=== PATIENT | male | born 1945 | race Caucasian/White ===

== ENCOUNTER → 2016-11-08 | Outpatient (CLI) | payer MEDICARE ==
[2016-11-08 15:58] LABS: Prostate Specific Antigen 9.45 ng/mL (0.00-4.00)
== END | disposition home or self-care (01) ==
LOC: LABWHC1 14:44
PROVIDERS: ATTEND Urology
DX: E29.1 Testicular hypofunction (principal)
CPT/HCPCS: 36415; 82040; 84153; 84270; 84403

== ENCOUNTER → 2016-12-13 | Outpatient (CLI) | payer MEDICARE ==
[2016-12-13 07:46] LABS: Basophils # (A) 0.1 k/uL (0-0.2); Basophils % (A) 1 %; CH 32.4; CHCM 33.4; Eosinophils # (A) 0.3 k/uL (0-0.7); Eosinophils % (A) 3 %; HDW 2.45; HGB 16.5 gm/dL (13.0-17.5); Luc # (Auto) 0.22; Luc % (Auto) 3; Lymphocytes # (A) 2.2 k/uL (1.0-4.8); Lymphocytes % (A) 27 %; MCH 32.2 pg (25.0-35.0); MCV 97.5 fL (80.0-100.0); Mean Platelet Volume 7.2; Monocytes # (A) 0.4 k/uL (0-1.0); Monocytes % (A) 5 %; Neutrophils # (A) 5.2 k/uL (1.3-7.7); Neutrophils % (A) 62 %; RBC 5.13 m/uL (4.30-5.90); RDW 13.5 % (11.5-15.5); WBC 8.4 k/uL (3.8-10.6)
[2016-12-13 11:43] LABS: ALT 34 U/L (21-72); AST 19 U/L (17-59); Alkaline Phosphatase 63 U/L (38-126); Anion Gap 10 mmol/L; Blood Urea Nitrogen 19 mg/dL (9-20); Calcium 9.7 mg/dL (8.4-10.2); Carbon Dioxide 27 mmol/L (22-30); Chloride 104 mmol/L (98-107); Cholesterol 155 mg/dL (<200); Glucose 164 mg/dL (74-99); HDL Cholesterol 24 mg/dL (40-60); Non-African American GFR(MDRD) >60 (>60 ml/min/1.73 sqM); Potassium 4.7 mmol/L (3.5-5.1); Sodium 141 mmol/L (137-145); Total Bilirubin 0.5 mg/dL (0.2-1.3); Total Protein 6.3 g/dL (6.3-8.2); Triglycerides 253 mg/dL (<150)
[2016-12-13 13:59] LABS: Hemoglobin A1C 6.4 % (4.2-6.1)
== END | disposition home or self-care (01) ==
LOC: LABWHC1 07:02
PROVIDERS: ATTEND Internal Medicine Critical Care Medicine
DX: E11.9 Type 2 diabetes mellitus without complications (principal); E29.1 Testicular hypofunction; Z79.899 Other long term (current) drug therapy; Z12.5 Encounter for screening for malignant neoplasm of prostate
CPT/HCPCS: 84439; 80061; 80053; 83036; 84443; 85025; 84403; 82306; 36415; G0103

== ENCOUNTER → 2017-02-04 | Outpatient (CLI) | payer MEDICARE ==
[2017-02-04 07:53] LABS: ALT 27 U/L (21-72); AST 15 U/L (17-59); Alkaline Phosphatase 56 U/L (38-126); Anion Gap 11 mmol/L; Blood Urea Nitrogen 20 mg/dL (9-20); Calcium 9.8 mg/dL (8.4-10.2); Carbon Dioxide 28 mmol/L (22-30); Chloride 103 mmol/L (98-107); Cholesterol 171 mg/dL (<200); Glucose 140 mg/dL (74-99); HDL Cholesterol 32 mg/dL (40-60); Non-African American GFR(MDRD) >60 (>60 ml/min/1.73 sqM); Potassium 4.3 mmol/L (3.5-5.1); Sodium 142 mmol/L (137-145); Total Bilirubin 0.7 mg/dL (0.2-1.3); Total Protein 6.6 g/dL (6.3-8.2); Triglycerides 181 mg/dL (<150)
[2017-02-04 12:21] LABS: Urine Creatinine 138.5 mg/dL
== END | disposition home or self-care (01) ==
LOC: LABWHC1 06:46
PROVIDERS: ATTEND Internal Medicine Endocrinology, Diabetes & Metabolism
DX: E11.65 Type 2 diabetes mellitus with hyperglycemia (principal)
CPT/HCPCS: 36415; 80053; 80061; 82043; 82570; 84443

== ENCOUNTER → 2017-03-14 | Outpatient (CLI) | payer MEDICARE ==
[2017-03-14 11:44] LABS: Sex Hormone Binding Globulin 26.5 nmol/L (11.0-57.0); Testosterone, Bioavailable 775.1 ng/dL (60.8-409.9); Testosterone, Free 33.1 ng/dL (3.70-23.28)
== END | disposition home or self-care (01) ==
LOC: LABWHC1 07:02
PROVIDERS: ATTEND Urology
DX: E29.1 Testicular hypofunction (principal)
CPT/HCPCS: 36415; 82040; 84153; 84270; 84403

== ENCOUNTER 2017-06-26 11:19 | Day surgery (SDC) | payer MEDICARE ==
--- NOTE | 2017-06-25 16:23 | HP ---
HISTORY AND PHYSICAL CHIEF COMPLAINT: Right hand pain and swelling. HISTORY OF PRESENT ILLNESS: The patient is a 71-year-old, right-hand dominant, retired male who presents with a 1- 1/2 weeks history of increasing pain in his right hand. He notes dorsal erythema and initial pimple on the index finger dorsum. This has subsequently started draining a purulent material. He denies fevers or chills. He was seen in an urgent care facility and was started on oral doxycycline. He notes worsening of symptoms over the past couple days. PAST MEDICAL HISTORY: Significant for type 2 diabetes and depression. PAST SURGICAL HISTORY: Significant for previous ankle surgery, cholecystectomy, tonsillectomy. CURRENT MEDICATIONS: Atorvastatin, clonazepam, fluoxetine, insulin, metformin, omeprazole, Requip, trazodone, and doxycycline. . ALLERGIES: To PENICILLIN and SULFA. FAMILY HISTORY: Significant for heart disease and diabetes. SOCIAL HISTORY: Significant for previous tobacco use; however, he quit in 1993. 16 REVIEW OF SYSTEMS: Otherwise reviewed and is noncontributory. PHYSICAL EXAMINATION: The patient is approximately 5 foot 6, 185 pounds of mesomorphic habitus. HEENT exam is nonfocal. Neck is supple. He is nontender about the right shoulder, elbow and wrist. On examination of his right hand, he has erythema extending over the dorsum of the index, MCP joint, proximal to the PIP joint. He has moderate digital stiffness. There is moderate dorsal swelling. There is purulent material expressible or a papule. He is nontender over the flexor surface. His distal neurovascular exam appears intact in the digits. X-rays of the right hand obtained in the office show no definite bony abnormality or radiopaque foreign body. IMPRESSION: 1. Right index finger dorsal abscess. 2. [id number] diabetes. RECOMMENDATIONS: I talked to the patient at length regarding his treatment options. At this point, I recommend proceeding with incision and drainage with irrigation and debridement of the right index finger dorsal abscess. We will potentially perform that as an outpatient procedure and start him on oral antibiotics. MMODL / IJN: [id number] /
[~2017-06-26 11:19] MED LIST: Pre Op ABX Message 1 EACH MISC MISCELLANE ONE
[2017-06-26 11:52] LABS: Glucose,Whole Blood 151 mg/dL (75-99)
[2017-06-26] MEDS ORDERED: LACTATED RINGERS 1,000 ML IV ONE (11:57)
[2017-06-26] MEDS ORDERED: LIDOCAINE 1% 20 ML VIAL (10MG/ML) FOR IV START INTRADERMA ONE (11:58)
[2017-06-26 12:05] VITALS: TEMP 98.1
[2017-06-26] MEDS ORDERED: PROPOFOL 10 MG/ML 20 ML VIAL IV ONE (12:49)
[2017-06-26] MEDS ORDERED: PHENYLEPHRINE-0.9% NACL SYG 1 MG/10 ML SYRINGE ONE (12:49)
[2017-06-26] MEDS ORDERED: SUCCINYLCHOLINE CHLORIDE 100 MG/5 ML SYR IV ONE (12:49)
[2017-06-26] MEDS ORDERED: MIDAZOLAM 2 MG/2 ML VIAL ONE (12:49)
[2017-06-26] MEDS ORDERED: ePHEDrine SULFATE/0.9% NACL/PF 50 MG/5 ML SYRINGE IV ONE (12:49)
[2017-06-26] MEDS ORDERED: fentaNYL (PF) 50 MCG/ML 2 ML AMP ONE (12:49)
[2017-06-26] MEDS ORDERED: LIDOCAINE 1% INJ 10MG/ML (20 ML MDV) ONE (12:49)
[2017-06-26] MEDS ORDERED: SODIUM CHLORIDE 0.9% 50 ML with CLINDAMYCIN 600 MG IV ONE ×2 (13:00)
--- NOTE | 2017-06-26 13:36 | P.OP ---
Date of Procedure: 06/26/17 Preoperative Diagnosis: Right dorsal hand/index finger abscess Postoperative Diagnosis: Same Procedure(s) Performed: Incision and drainage with irrigation and debridement right dorsal hand/index finger abscess Anesthesia: CAROLA Surgeon: Nemesio Leon Estimated Blood Loss (ml): 2 Pathology: other (Deep cultures) Condition: stable Disposition: PACU Indications for Procedure: The patient's a 71-year-old male who presents with a 10 day history of progressive right hand pain/redness, and drainage. Clinically he was noted have evidence of a dorsal hand/index finger abscess. A discussion of the risks and benefits of operative intervention was made with patient. She opted to proceed with surgery. Operative risks to include persistence of infection, neurovascular injury, and possible need for subsequent procedures was discussed. Informed consent was obtained. Operative Findings: Moderate purulence Description of Procedure: The patient was brought to the operating room, and after induction of general anesthesia the right upper extremity was prepped and draped in normal fashion. The tourniquet was inflated to 250 mmHg. A [place]-type incision was made centered over the index MCP joint extending distally. The skin was incised sharply. Subcutaneous tissues were divided bluntly. Moderate purulence was encountered. Deep cultures were obtained. This was dissected down to level of the extensor tendon. The extensor tendon did not appear to be affected. There was significant fibrinous hypertrophy. This is abraded sharply with a scalpel and excised. The wound was irrigated copiously with normal saline. The skin was loosely reapproximated with simple 4-0 nylon sutures. A sterile dressing was applied. The tourniquet was deflated with approximately 15 minutes total tourniquet time. The patient was awoken from general anesthesia and transferred to the recovery room in good condition. No complications were incurred. Sponge and needle counts were correct at the end the case.
[2017-06-26] MEDS: fentaNYL (PF) 50 MCG/ML 2 ML AMP IVP ONE ×2 (13:44→13:56)
[2017-06-26] MEDS ORDERED: KETOROLAC 30 MG/ML 1 ML VIAL IVP ONE (14:12)
[2017-06-26 14:23] LABS: Glucose,Whole Blood 125 mg/dL (75-99)
[2017-06-26 14:41] VITALS: RESP 18
[2017-06-26 15:06] VITALS: BP 146/71; PULSE 78
== END 2017-06-26 15:40 | disposition home or self-care (01) ==
LOC: OR 11:19
PROVIDERS: ATTEND Orthopaedic Surgery
DX: L02.511 Cutaneous abscess of right hand (principal); I10 Essential (primary) hypertension; E78.5 Hyperlipidemia, unspecified; J44.9 Chronic obstructive pulmonary disease, unspecified; K21.9 Gastro-esophageal reflux disease without esophagitis; E11.9 Type 2 diabetes mellitus without complications; F32.9 Major depressive disorder, single episode, unspecified; Z79.51 Long term (current) use of inhaled steroids; Z79.899 Other long term (current) drug therapy; Z79.4 Long term (current) use of insulin; Z87.891 Personal history of nicotine dependence; Z88.0 Allergy status to penicillin; Z88.2 Allergy status to sulfonamides
CPT/HCPCS: 26011; 87070; 87205; 87075; 87077; 87186; J2250; J2001; J3010; J1885; J2370; J0330; J2704

== ENCOUNTER → 2017-09-13 | Outpatient (CLI) | payer MEDICARE | END | disposition home or self-care (01) | LOC: LABWHC1 11:24 | PROVIDERS: ATTEND Urology | DX: N40.1 Benign prostatic hyperplasia with lower urinary tract symptoms (principal) | CPT/HCPCS: 36415; 84153 ==

== ENCOUNTER → 2018-01-15 | Outpatient (CLI) | payer MEDICARE ==
[2018-01-15 11:17] LABS: Basophils # (A) 0.1 k/uL (0-0.2); Basophils % (A) 0 %; Eosinophils # (A) 0.2 k/uL (0-0.7); Eosinophils % (A) 2 %; HCT 49.7 % (39.0-53.0); HGB 16.4 gm/dL (13.0-17.5); Lymphocytes # (A) 1.6 k/uL (1.0-4.8); Lymphocytes % (A) 11 %; MCH 30.4 pg (25.0-35.0); MCV 92.4 fL (80.0-100.0); Mean Platelet Volume 7.4; Monocytes # (A) 0.6 k/uL (0-1.0); Monocytes % (A) 4 %; Neutrophils # (A) 11.3 k/uL (1.3-7.7); Neutrophils % (A) 82 %; Platelet Count 283 k/uL (150-450); RBC 5.38 m/uL (4.30-5.90); RDW 13.2 % (11.5-15.5); WBC 13.8 k/uL (3.8-10.6)
[2018-01-15 11:24] LABS: ALT 34 U/L (21-72); AST 18 U/L (17-59); Alkaline Phosphatase 61 U/L (38-126); Anion Gap 11 mmol/L; Blood Urea Nitrogen 17 mg/dL (9-20); Calcium 9.6 mg/dL (8.4-10.2); Carbon Dioxide 28 mmol/L (22-30); Chloride 101 mmol/L (98-107); Cholesterol 115 mg/dL (<200); Glucose 148 mg/dL (74-99); HDL Cholesterol 30 mg/dL (40-60); LDL Cholesterol,Calculated 61 mg/dL (0-99); Potassium 4.6 mmol/L (3.5-5.1); Sodium 140 mmol/L (137-145); Total Bilirubin 0.6 mg/dL (0.2-1.3); Total Protein 6.3 g/dL (6.3-8.2); Triglycerides 119 mg/dL (<150)
[2018-01-15 11:40] LABS: T4, Free (Free Thyroxine) 0.74 ng/dL (0.78-2.19)
[2018-01-15 20:01] LABS: Hemoglobin A1C 6.4 % (4.0-6.0)
== END | disposition home or self-care (01) ==
LOC: LABWHC1 10:16
PROVIDERS: ATTEND Internal Medicine Critical Care Medicine
DX: E11.9 Type 2 diabetes mellitus without complications (principal); E78.5 Hyperlipidemia, unspecified; E29.1 Testicular hypofunction
CPT/HCPCS: 84439; 80061; 80053; 84443; 85025; 84270; 82040; 84403; 82306; 83036; 36415; G0103

== ENCOUNTER → 2018-03-13 | Outpatient (CLI) | payer MEDICARE | END | disposition home or self-care (01) | LOC: LABWHC1 08:45 | PROVIDERS: ATTEND Urology | DX: E29.1 Testicular hypofunction (principal) | CPT/HCPCS: 36415; 82040; 84153; 84270; 84403 ==

== ENCOUNTER → 2022-04-02 | Outpatient (CLI) | payer MEDICARE ==
--- NOTE | 2022-04-02 13:15 | MM ---
Reason for Exam: Clinical finding. Indicated Problems: Palpable abnormality. Tissue Density: The breast tissue is almost entirely fat. Findings: Analyzed By CAD. No evidence of suspicious mass, calcification or distortion. Overall Assessment: Negative, BI-RAD 1 Management: Screening Mammogram of both breasts in 1 year. A clinical breast exam by your physician is recommended on an annual basis and results should be correlated with mammographic findings. This exam should not preclude additional follow-up of suspicious palpable abnormalities. Results were given to the patient verbally at the time of exam. Electronically signed and approved by: Almas Mittal DO
--- NOTE | 2022-04-02 14:59 | USB ---
Findings: The whole breast of the left breast, the axilla of the left breast and the retroareolar of the left breast were scanned. There is a hyperechoic mass in the left breast 2:00 12 cm from the nipple. Measuring 2.8 x 1.1 x 2.0 cm and is most consistent with a lipoma No suspicious solid or cystic masses are identified. Overall Assessment: Benign, BI-RAD 2 Management: Clinical Management of the left breast in 1 year. A clinical breast exam by your physician is recommended on an annual basis and results should be correlated with mammographic findings. Electronically signed and approved by: Almas Mittal DO
== END | disposition home or self-care (01) ==
LOC: RADMAMWWP 12:37
PROVIDERS: ATTEND Family Medicine
DX: N63.21 Unspecified lump in the left breast, upper outer quadrant (principal)
CPT/HCPCS: 77066; 76641; G0279; 77062

== ENCOUNTER → 2023-01-16 | Outpatient (CLI) | payer MEDICARE ==
--- NOTE | 2023-01-16 12:04 | P.SLEEP ---
History of Present Illness DATE: 01/16/2023 CONSULTATION/NEW PATIENT EVALUATION HISTORY OF PRESENT ILLNESS/SLEEP-WAKE EVALUATION: 77 year old gentleman had been evaluated in the sleep center for possible obstructive sleep apnea hypopnea syndrome and insomnia. SLEEP SCHEDULE: Usually sleep schedule from 10:30 PM until around 7 AM 7 days a week. FALLING ASLEEP: Patient has difficulties with the falling asleep, although no TV in bedroom. DURING SLEEP: According to patient he snores and she wakes up from sleep up to 9 times with one episode of nocturia. Positive history of restless leg symptoms. No history of hypnogogical hallucinations, sleep paralysis, or cataplexy. DURING THE DAY/WAKE STATE: In the morning patient wake up tired , has problems with concentration. [place] sleepiness scale is 2. Usually patient doesn't take any naps. PAST MEDICAL HISTORY: Asthma, diabetes mellitus, headaches, acid reflux. PAST SURGICAL HISTORY: Tonsillectomy, surgical treatment of skin cancer, right ankle surgery. MEDICATIONS: Albuterol, duloxetine, gabapentin, Lipitor 10 mg once a day, metformin 1000 mg twice a day, insulin, omeprazole, testosterone, alfuzosin. SOCIAL HISTORY: Positive history of smoking for about 20 years up to 2 packs per day quit in 1991, alcohol consumption none at the present time. FAMILY HISTORY: Heart problems, stroke. REVIEW OF SYSTEMS: Snoring, multiple awakenings from sleep, difficulties to initiate sleep. No fevers. No double vision. No recent chest pain. No shortness of breath. No abdominal pain. No bleeding episodes. No blood in urine. No seizure episodes. PHYSICAL EXAMINATION: GENERAL: A pleasant patient without any distress. VITAL SIGNS: BP 109/70 , HR 91 , RR 18 , weight 200.4 pounds, height 5 foot 2.5 inches, body mass index 35.9 . HEENT: PERRLA, EOMI. Evaluation of oropharynx showed tongue protrudes midline, low position of soft palate Mallampati 4. NECK: Supple. No JVD. Thyroid is not palpable. 17 inches in circumference. LUNGS: Clear to percussion and to auscultation. Increased anterior-posterior diameter of the chest. HEART: S1, S2 regular. No murmurs, gallops or rubs. ABDOMEN: Soft and nontender. Bowel sounds are present. No organomegaly appreciated. Obese EXTREMITIES: No clubbing or cyanosis. PETROLEUM ENGINEERING TEACHER: Awake, alert, and oriented x3. Cranial nerves 2 to 7 intact. There is no fasciculation or atrophy noted. No focal deficits observed. ASSESSMENT: 1. Snoring, multiple awakenings from sleep, extremely low position of soft palate Mallampati 4, wide neck 17 inches in circumference. Obstructive sleep apnea hypopnea syndrome. 2. Insomnia with difficulties to initiate sleep. 3. Asthma. 4. Obesity BMI 35.9. 5 Possibly emphysema, increased anterior-posterior diameter of the chest. 6 . Diabetes mellitus. 7. Restless leg syndrome. 8. Headaches. 9 . Acid reflux. 10. History of sinuses problems. PLAN: 1. Polysomnography for evaluation of patient's breathing during sleep. 2. CPAP/BiPAP titration if sleep study confirms obstructive sleep apnea- hypopnea syndrome. 3. Preferable position during sleep on the side. 4. No driving if patient feels any sleepiness. Patient is aware of civil and criminal liability for unsafe driving. 5. Sleep hygiene with regular sleep time for at least 7.5-8 hours. 6. Watching and losing weight. Thank you very much for referring this patient for consultation. Sincerely, Arthur Mo MD, PhD, FAASM. Diplomat of [place] [employer], Sleep Medicine Board by [place] [employer] [place] [employer] Inspecting Supervisor of [facility] [place] Past Medical History Past Medical History: Diabetes Mellitus Additional Past Medical History / Comment(s): skin ca, chronic bronchitis History of Any Multi-Drug Resistant Organisms: None Reported Past Surgical History: Adenoidectomy, Appendectomy, Cholecystectomy, Tonsillectomy Additional Past Surgical History / Comment(s): ankle Past Anesthesia/Blood Transfusion Reactions: No Reported Reaction Past Psychological History: No Psychological Hx Reported Past Alcohol Use History: None Reported Additional Past Alcohol Use History / Comment(s): STOPPED DRINKING ALCOHOL IN 1991 Past Drug Use History: None Reported - Past Family History Sister(s) Family Medical History: COPD Medications and Allergies Home Medications Medication Instructions Recorded Confirmed Type Acetaminophen Tab [Tylenol] 1 tab PO PC-TID PRN 07/25/14 06/26/17 History Atorvastatin [Lipitor] 10 mg PO DAILY 07/25/14 06/26/17 History Insulin Aspart [Novolog Flexpen] 30 units SQ TID PRN 07/25/14 06/26/17 History Insulin Glargine,Hum.rec.anlog 45 units SQ DAILY 07/25/14 11/25/16 History [Lantus Solostar] Lisinopril [Prinivil] 5 mg PO DAILY 07/25/14 06/26/17 History Multivitamin [Men's Multi-Vitamin] 1 tab PO DAILY 07/25/14 06/26/17 History Omeprazole [PriLOSEC] 20 mg PO BID 07/25/14 06/26/17 History Zolpidem [Ambien] 10 mg PO HS 07/25/14 06/26/17 History guaiFENesin [Mucinex] 600 mg PO DAILY PRN 07/25/14 06/26/17 History rOPINIRole HCL [Requip] 0.5 mg PO BID 07/25/14 06/26/17 History traZODone HCL [Desyrel] 100 mg PO DAILY 07/25/14 06/26/17 History Fluticasone Propionate [Flonase] 2 spray EA NOSTRIL DAILY PRN 07/26/14 06/26/17 History Melatonin 5 mg PO HS 07/26/14 06/26/17 History Mometasone/Formoterol [Dulera 200 2 puff INHALATION RT-BID PRN 07/26/14 06/26/17 History Mcg/5 Mcg Inhaler] HYDROcodone/APAP 5-325MG [[place] 1 each PO Q4HR PRN #20 tab 07/27/14 06/26/17 Rx 5-325] guaiFENesin-Coden 100-10MG/5ML 10 ml PO Q6H PRN #1 300ml.bag 07/27/14 06/26/17 Rx [Robitussin AC] Allergies Allergy/AdvReac Type Severity Reaction Status Date / Time Penicillins Allergy Anaphylaxis Verified 11/25/16 07:15 Sulfa (Sulfonamide Allergy Unknown Verified 11/25/16 07:15 Antibiotics) Childhood Sleep Note - Sleep Note Sleep Note: Temperature: Pulse Rate: Respiratory Rate: Blood Pressure: SpO2: Height: Weight: BMI: Neck Circumference:
== END ==
LOC: 3 N SLEEP 10:46
PROVIDERS: ATTEND Internal Medicine
DX: G47.33 Obstructive sleep apnea (adult) (pediatric) (principal); E11.9 Type 2 diabetes mellitus without complications; K21.9 Gastro-esophageal reflux disease without esophagitis; J43.9 Emphysema, unspecified; R51.9 Headache, unspecified; E66.9 Obesity, unspecified; G25.81 Restless legs syndrome; Z68.35 Body mass index [BMI] 35.0-35.9, adult; Z79.84 Long term (current) use of oral hypoglycemic drugs; Z79.51 Long term (current) use of inhaled steroids; Z79.4 Long term (current) use of insulin; Z88.0 Allergy status to penicillin; Z88.2 Allergy status to sulfonamides; Z87.891 Personal history of nicotine dependence
CPT/HCPCS: 99211

== ENCOUNTER → 2023-02-12 | Outpatient (CLI) | payer MEDICARE ==
--- NOTE | 2023-02-12 14:05 | P.PN ---
Subjective DATE: 02/12/2023 FOLLOW UP VISIT. 77-year-old gentleman return to sleep center for follow-up visit to discuss results of sleep study and following plan. I discuss results of sleep studies with patient in details. No significant respiratory abnormalities have been documented. No significant respiratory abnormalities have been documented. Extremely severe periodic limb movements have been documented more than 100 times per hour but without any micro-arousals related to leg movements. Patient continued to have multiple awakenings from sleep. . [place] sleepiness scale is 2. MEDICATIONS:1. Albuterol 2. Duloxetine 3. Gabapentin 4. Lipitor 5. Metformin 6. Testosterone 7. Omeprazole During physical exam: GENERAL: A pleasant patient without any distress. VITAL SIGNS: BP 126/70, HR 102, RR 18 , weight 100.4, temperature 98.3, oxygen saturation at room air 94 . HEENT: PERRLA, EOMI. NECK: Supple. No JVD. LUNGS: Clear to percussion and to auscultation. Good air exchange. No wheezing or rhonchi. HEART: S1, S2 regular. ABDOMEN: Soft and nontender. EXTREMITIES: No clubbing or cyanosis. PRODUCTION MACHINE COMPUTER OPERATOR: Awake, alert, and oriented x3. No focal deficit. Impressions: 1. No significant respiratory abnormalities have been documented during the sleep study 2. Extremely severe periodic limb movements 102 times per hour, but without significant amount of micro-arousals.. 3. Patient continued to have significant problems with the falling asleep and multiple awakenings from sleep.. 4. Asthma. 5. Obesity. 6. Diabetes mellitus. 7. Restless leg syndrome. 8. Acid reflux. 9. History of headaches. Plan: 1. Patient will start treatment with small his dose of dopaminergic agonists Mirapex 0.125 mg 1-2 tablets at bedtime. 2. Sleep hygiene with regular time in bed for at least 8 hours. 3. Clonazepam small his dose 0.5 mg at bedtime. 4. Precautions related to driving. No driving if feel any sleepiness. Patient is aware about civil and criminal liability for unsafe driving, promised to follow recommendations. 5. Follow up visit in 4-6 months or earlier if patient has any problems. Thank you very much for allowing me to participate in the management of your patient. Arthur Mo MD, PhD, FAASM. Diplomat of [place], Sleep Medicine Board by [employer] Chief Hospital Administrator of [facility] [place]
== END ==
LOC: 3 N SLEEP 13:14
PROVIDERS: ATTEND Internal Medicine
DX: G47.61 Periodic limb movement disorder (principal); J45.909 Unspecified asthma, uncomplicated; K21.9 Gastro-esophageal reflux disease without esophagitis; E11.9 Type 2 diabetes mellitus without complications; G25.81 Restless legs syndrome; R51.9 Headache, unspecified; Z79.84 Long term (current) use of oral hypoglycemic drugs; Z79.51 Long term (current) use of inhaled steroids; Z88.0 Allergy status to penicillin; Z88.2 Allergy status to sulfonamides; Z79.4 Long term (current) use of insulin; Z87.891 Personal history of nicotine dependence
CPT/HCPCS: 99212

== ENCOUNTER → 2023-06-26 | Outpatient (CLI) | payer MEDICARE ==
--- NOTE | 2023-06-26 11:53 | P.PN ---
Subjective DATE: 06/26/2023 FOLLOW UP VISIT. Patient returned to sleep center for follow-up visit for treatment of extremely severe periodic limb movements. We did trial with dopaminergic arthritis, but patient did not feel any improvements and continued to have awakenings from sleep. On treatment with clonazepam 0.5 mg patient did not feel improvements, but with the dose 1 mg at bedtime patient sleeps well and does not have so many awakenings as he had before . [place] sleepiness scale is 4, which is normal. MEDICATIONS:1. Albuterol 2. Gabapentin 3. Duloxetine 4. Lipitor 5. Metformin 6. Testosterone 7. Omeprazole 8. Clonazepam During physical exam: GENERAL: A pleasant patient without any distress. VITAL SIGNS: BP 153/92, HR 107, RR 18 , weight 195.0, temperature 97.8, oxygen saturation at room air 95% . HEENT: PERRLA, EOMI. NECK: Supple. No JVD. LUNGS: Clear to percussion and to auscultation. Good air exchange. No wheezing or rhonchi. HEART: S1, S2 regular. ABDOMEN: Soft and nontender. EXTREMITIES: No clubbing or cyanosis. DIRECTOR OF DEVELOPMENT: Awake, alert, and oriented x3. No focal deficit. Impressions: 1. Periodic limb movements 2. Insomnia. 3. Asthma. 4. Restless leg syndrome. 5. Obesity. 6. History of headaches. 7. Acid reflux. Plan: 1. Patient will continue treatment with clonazepam 1 mg at bedtime 2. Sleep hygiene with regular time in bed for at least 8 hours. 3. Watching and losing weight 4. Precautions related to driving. No driving if feel any sleepiness. Patient is aware about civil and criminal liability for unsafe driving, promised to follow recommendations. 5. Follow up visit in 4-6 months or earlier if patient has any problems. Thank you very much for allowing me to participate in the management of your patient. Arthur Mo MD, PhD, FAASM. Diplomat of [place] [employer], Sleep Medicine Board by [place] [employer] [place] Fire Fighter Specialist of [facility] [place]
== END ==
LOC: 3 N SLEEP 10:27
PROVIDERS: ATTEND Internal Medicine
DX: G47.61 Periodic limb movement disorder (principal); G25.81 Restless legs syndrome; E66.9 Obesity, unspecified; G47.00 Insomnia, unspecified; K21.9 Gastro-esophageal reflux disease without esophagitis; J45.909 Unspecified asthma, uncomplicated; Z86.69 Personal history of other diseases of the nervous system and sense organs; Z88.0 Allergy status to penicillin; Z88.2 Allergy status to sulfonamides; Z87.891 Personal history of nicotine dependence
CPT/HCPCS: 99212

== ENCOUNTER → 2024-02-05 | Outpatient (CLI) | payer MEDICARE ==
[2024-02-05 11:13] VITALS: BP 112/67; PULSE 94; RESP 16; TEMP 97.9
--- NOTE | 2024-02-05 11:37 | P.PROGSL ---
Subjective DATE: 02/05/2024 FOLLOW UP VISIT. Patient returned to sleep center for follow-up visit related to multiple awakenings from sleep. I reviewed results of sleep study which we did 1 year ago. Sleep study which was done in the office did not show any abnormal respiratory events at that time, but it was extremely high amount of periodic limb movements 102/h, but without significant amount of microarousal's. Presently patient is on clonazepam 1 mg at bedtime and he also on treatment with gabapentin. Patient continued to wake up from sleep several times. Any minimal noise may wake him up. . [place] sleepiness scale is 4 which is normal. MEDICATIONS: Please see below During physical exam: GENERAL: A pleasant patient without any distress. VITAL SIGNS: Please see below, weight 168 pounds. HEENT: [place], EOMI. NECK: Supple. No JVD. LUNGS: Clear to percussion and to auscultation. Good air exchange. No wheezing or rhonchi. HEART: S1, S2 regular. ABDOMEN: Soft and nontender. EXTREMITIES: No clubbing or cyanosis. RN NICU: Awake, alert, and oriented x3. No focal deficit. Impressions: 1. Extremely severe periodic limb movements by results of polysomnogram 102 times per hour, but without significant amount of micro arousals. 2. Insomnia. 3. Restless leg symptoms. 4. Asthma. 5. Obesity, BMI 31.7, patient lost about 27 pounds comparing with previous visit. 6. History of headaches. 7. Acid reflux. Plan: 1. Patient will continue treatment with clonazepam 1 mg at bedtime. 2. Sleep hygiene with regular time in bed for at least 8 hours. 3. Prescription for Mirapex 0.125 mg 1 to 2 tablets at bedtime. 4. Precautions related to driving. No driving if feel any sleepiness. Patient is aware about civil and criminal liability for unsafe driving, promised to follow recommendations. 5. Follow up visit in 5 months or earlier if patient has any problems. 6. Earplugs. 7. Please check iron profile including ferritin level, low level of iron may increase risk for periodic limb movements. Thank you very much for allowing me to participate in the management of your patient. Arthur Mo MD, PhD, FAASM. Diplomat of [place] [employer], Sleep Medicine Board by [place] [employer] Ultrasonic Hand Solderer of [facility] [place] Objective - Vital Signs Vital Signs: Vital Signs Temp 97.9 F 02/05/24 11:12 Pulse 94 02/05/24 11:12 Resp 16 02/05/24 11:12 BP 112/67 02/05/24 11:12 Pulse Ox 93 L 02/05/24 11:12 FiO2 Intake & Output 02/04/24 02/05/24 02/05/24 18:59 06:59 18:59 Weight 76.204 kg Home Medications: Home Medications Medication Instructions Recorded Confirmed Type Acetaminophen Tab [Tylenol] 1 tab PO PC-TID PRN 07/25/14 02/05/24 History Atorvastatin [Lipitor] 10 mg PO DAILY 07/25/14 02/05/24 History Insulin Aspart [Novolog Flexpen] 30 units SQ TID PRN 07/25/14 02/05/24 History Insulin Glargine,Hum.rec.anlog 45 units SQ DAILY 07/25/14 02/05/24 History [Lantus Solostar] Lisinopril [Prinivil] 5 mg PO DAILY 07/25/14 02/05/24 History Multivitamin [Men's Multi-Vitamin] 1 tab PO DAILY 07/25/14 02/05/24 History Omeprazole [PriLOSEC] 20 mg PO BID 07/25/14 02/05/24 History Zolpidem [Ambien] 10 mg PO HS 07/25/14 02/05/24 History guaiFENesin [Mucinex] 600 mg PO DAILY PRN 07/25/14 02/05/24 History rOPINIRole HCL [Requip] 0.5 mg PO BID 07/25/14 02/05/24 History traZODone HCL [Desyrel] 100 mg PO DAILY 07/25/14 02/05/24 History Fluticasone Propionate [Flonase] 2 spray EA NOSTRIL DAILY PRN 07/26/14 02/05/24 History Melatonin 5 mg PO HS 07/26/14 02/05/24 History Mometasone/Formoterol [Dulera 200 2 puff INHALATION RT-BID PRN 07/26/14 02/05/24 History Mcg/5 Mcg Inhaler] HYDROcodone/APAP 5-325MG [[place] 1 each PO Q4HR PRN #20 tab 07/27/14 02/05/24 Rx 5-325] guaiFENesin-Coden 100-10MG/5ML 10 ml PO Q6H PRN #1 300ml.bag 07/27/14 02/05/24 Rx [Robitussin AC] clonazePAM [Clonazepam] 1 mg PO HS 02/05/24 02/05/24 History
== END ==
LOC: 3 N SLEEP 11:02
PROVIDERS: ATTEND Internal Medicine
DX: G47.61 Periodic limb movement disorder (principal); G47.00 Insomnia, unspecified; G25.81 Restless legs syndrome; J45.909 Unspecified asthma, uncomplicated; E66.9 Obesity, unspecified; K21.9 Gastro-esophageal reflux disease without esophagitis; Z68.31 Body mass index [BMI] 31.0-31.9, adult; Z86.69 Personal history of other diseases of the nervous system and sense organs; Z88.0 Allergy status to penicillin; Z88.2 Allergy status to sulfonamides; Z79.51 Long term (current) use of inhaled steroids; Z87.891 Personal history of nicotine dependence
CPT/HCPCS: 99212

== ENCOUNTER → 2024-02-09 | Outpatient (CLI) | payer MEDICARE ==
--- NOTE | 2024-02-09 15:35 | CT ---
EXAMINATION TYPE: CT brain wo con DATE OF EXAM: 02/09/2024 COMPARISON: None HISTORY: DIZZY CT DLP: 1066.9 mGycm Automated exposure control for dose reduction was used. Findings: The ventricles, basal cisterns and sulci over the convexities are moderately enlarged. There is mild- to-moderate decreased density in the periventricular white matter consistent with chronic ischemic wh ite matter demyelination. There is no mass effect or shift of the midline structures. There is no acute intra or extra-axial hemorrhage. The posterior fossa including the brainstem, fourth ventricle and cerebellar pontine angles appear no rmal. Intraorbital contents appear normal and symmetric. Visualized paranasal sinuses and mastoid air cells are well aerated. The calvarium is intact. IMPRESSION: 1. No acute bleed or mass effect. 2. Senescent atrophy and ischemic white matter changes as described above.
== END | disposition home or self-care (01) ==
LOC: RADCTMAIN 13:43
PROVIDERS: ATTEND Family Medicine
DX: R51.9 Headache, unspecified (principal); I67.82 Cerebral ischemia
CPT/HCPCS: 70450

== ENCOUNTER → 2024-06-16 | Outpatient (CLI) | payer MEDICARE ==
[2024-06-16 11:40] VITALS: BP 105/63; PULSE 98; RESP 16; TEMP 97.5
--- NOTE | 2024-06-16 12:07 | P.PROGSL ---
Subjective DATE: 11/01/2023 FOLLOW UP VISIT. Patient returned to sleep center for follow-up visit for treatment of multiple awakenings from sleep related to periodic limb movements. Presently patient on treatment with gabapentin, Mirapex and clonazepam with this regimen patient is able to sleep about 7 hours per night. [place] sleepiness scale is 2, which is normal. MEDICATIONS: Have been reviewed, please see below. During physical exam: GENERAL: A pleasant patient without any distress. VITAL SIGNS: Please see below, weight 175 pounds. HEENT: PERRLA, EOMI. NECK: Supple. No JVD. LUNGS: Clear to percussion and to auscultation. Good air exchange. No wheezing or rhonchi. HEART: S1, S2 regular. ABDOMEN: Soft and nontender. EXTREMITIES: No clubbing or cyanosis. REVENUE CYCLE ANALYST: Awake, alert, and oriented x3. No focal deficit. Impressions: 1. Severe periodic limb movements 102/h by results of polysomnogram. Clinically improved on pharmacotherapy. 2. Insomnia. 3. Restless leg syndrome. 4. Obesity in mild range, patient increased weight on 7 pounds comparing with previous visit. 5. Asthma. 6. History of headaches. 7. Acid reflux. Plan: 1. Patient will continue treatment with Mirapex 0.125 mg 1 to 2 tablets at bedtime and clonazepam 1 mg at bedtime. 2. Sleep hygiene with regular time in bed for at least 8 hours. 3. Precautions related to driving. No driving if feel any sleepiness. Patient is aware about civil and criminal liability for unsafe driving, promised to follow recommendations. 4. Follow up visit in 6 months or earlier if patient has any problems. Thank you very much for allowing me to participate in the management of your patient. Arthur Mo MD, PhD, FAASM. Diplomat of [place] [employer], Sleep Medicine Board by [place] [employer] Psychometrist of [facility] [place] Objective - Vital Signs Vital Signs: Vital Signs Temp 97.5 F L 06/16/24 11:39 Pulse 98 06/16/24 11:39 Resp 16 06/16/24 11:39 BP 105/63 06/16/24 11:39 Pulse Ox 97 06/16/24 11:39 FiO2 Intake & Output 06/15/24 06/16/24 06/16/24 18:59 06:59 18:59 Weight 79.379 kg Home Medications: Home Medications Medication Instructions Recorded Confirmed Type Acetaminophen Tab [Tylenol] 1 tab PO PC-TID PRN 07/25/14 02/05/24 History Atorvastatin [Lipitor] 10 mg PO DAILY 07/25/14 06/16/24 History Insulin Aspart [Novolog Flexpen] 30 units SQ TID PRN 07/25/14 02/05/24 History Insulin Glargine,Hum.rec.anlog 45 units SQ DAILY 07/25/14 02/05/24 History [Lantus Solostar] Lisinopril [Prinivil] 5 mg PO DAILY 07/25/14 06/16/24 History Multivitamin [Men's Multi-Vitamin] 1 tab PO DAILY 07/25/14 06/16/24 History Omeprazole [PriLOSEC] 20 mg PO BID 07/25/14 06/16/24 History Zolpidem [Ambien] 10 mg PO HS 07/25/14 06/16/24 History guaiFENesin [Mucinex] 600 mg PO DAILY PRN 07/25/14 06/16/24 History rOPINIRole HCL [Requip] 0.5 mg PO BID 07/25/14 06/16/24 History traZODone HCL [Desyrel] 100 mg PO DAILY 07/25/14 06/16/24 History Fluticasone Propionate [Flonase] 2 spray EA NOSTRIL DAILY PRN 07/26/14 02/05/24 History Melatonin 5 mg PO HS 07/26/14 02/05/24 History Mometasone/Formoterol [Dulera 200 2 puff INHALATION RT-BID PRN 07/26/14 02/05/24 History Mcg/5 Mcg Inhaler] HYDROcodone/APAP 5-325MG [[place] 1 each PO Q4HR PRN #20 tab 07/27/14 02/05/24 Rx 5-325] guaiFENesin-Coden 100-10MG/5ML 10 ml PO Q6H PRN #1 300ml.bag 07/27/14 02/05/24 Rx [Robitussin AC] clonazePAM [Clonazepam] 1 mg PO HS 02/05/24 06/16/24 History Empagliflozin [Jardiance] 25 mg PO DAILY 06/16/24 06/16/24 History Gabapentin 300 mg PO TID 06/16/24 06/16/24 History Pramipexole [Mirapex] 0.125 mg PO DAILY 06/16/24 06/16/24 History metFORMIN HCL 500 mg PO DAILY 06/16/24 06/16/24 History
== END ==
LOC: 3 N SLEEP 11:27
PROVIDERS: ATTEND Internal Medicine
DX: G47.33 Obstructive sleep apnea (adult) (pediatric) (principal); G47.61 Periodic limb movement disorder; G25.81 Restless legs syndrome; E66.9 Obesity, unspecified; Z68.31 Body mass index [BMI] 31.0-31.9, adult; J45.909 Unspecified asthma, uncomplicated; K21.9 Gastro-esophageal reflux disease without esophagitis; Z86.69 Personal history of other diseases of the nervous system and sense organs; Z88.0 Allergy status to penicillin; Z88.2 Allergy status to sulfonamides; Z87.891 Personal history of nicotine dependence
CPT/HCPCS: 99212

== ENCOUNTER → 2024-12-16 | Outpatient (CLI) | payer MEDICARE ==
[2024-12-16 13:53] VITALS: BP 112/78; PULSE 100; RESP 16; TEMP 97.8
--- NOTE | 2024-12-16 14:17 | P.PROGSL ---
Subjective DATE: 12/16/2024 FOLLOW UP VISIT. Patient returned to sleep center for follow-up visit for treatment of restless leg syndrome symptoms and periodic limb movements. Patient is on treatment with Mirapex 1 to 2 tablets at bedtime. With this regimen patient sleeps well without any significant leg movements. [place] sleepiness scale is 1, which is perfect. MEDICATIONS: Please see below During physical exam: GENERAL: A pleasant patient without any distress. VITAL SIGNS: Please see below, weight 167 pounds, BMI 30.5. HEENT: PERRLA, EOMI. NECK: Supple. No JVD. LUNGS: Clear to percussion and to auscultation. Good air exchange. No wheezing or rhonchi. HEART: S1, S2 regular. ABDOMEN: Soft and nontender. EXTREMITIES: No clubbing or cyanosis. FINANCIAL SALES ADVISOR: Awake, alert, and oriented x3. No focal deficit. Impressions: 1. Extremely severe periodic limb movements by results of polysomnogram 102 times per hour. On treatment with Mirapex patient sleeps well without any complaints and leg movements according to his . 2. History of restless legs, uncontrolled with Mirapex. 3. History of insomnia. 4. Asthma. 5. Very mild obesity, patient lost 8 pounds since previous visit. 6. Asthma. 7. Episodes of dizziness. 8. History of headaches. 9. Acid reflux. Plan: 1. Patient will continue treatment with Mirapex 0.125 mg 1 to 2 tablets at bedtime 2. Sleep hygiene with regular time in bed for at least 8 hours. 3. Follow up visit in 8 months or earlier if patient has any problems. 4. Precautions related to driving. No driving if feel any sleepiness. Thank you very much for allowing me to participate in the management of your patient. Arthur Mo MD, PhD, FAASM. Diplomat of [place] [employer], Sleep Medicine Board by [place] [employer] Offset Proof Press Operator of [facility] [place] Objective - Vital Signs Vital Signs: Vital Signs Temp 97.8 F 12/16/24 13:51 Pulse 100 12/16/24 13:51 Resp 16 12/16/24 13:51 BP 112/78 12/16/24 13:51 Pulse Ox 96 12/16/24 13:51 FiO2 Intake & Output 12/15/24 12/16/24 12/16/24 18:59 06:59 18:59 Weight 75.75 kg Home Medications: Home Medications Medication Instructions Recorded Confirmed Type Acetaminophen Tab [Tylenol] 1 tab PO PC-TID PRN 07/25/14 02/05/24 History Atorvastatin [Lipitor] 10 mg PO DAILY 07/25/14 12/16/24 History Insulin Aspart [Novolog Flexpen] 30 units SQ TID PRN 07/25/14 02/05/24 History Insulin Glargine,Hum.rec.anlog 45 units SQ DAILY 07/25/14 12/16/24 History [Lantus Solostar] Lisinopril [Prinivil] 5 mg PO DAILY 07/25/14 12/16/24 History Multivitamin [Men's Multi-Vitamin] 1 tab PO DAILY 07/25/14 12/16/24 History Omeprazole [PriLOSEC] 20 mg PO BID 07/25/14 12/16/24 History Zolpidem [Ambien] 10 mg PO HS 07/25/14 12/16/24 History guaiFENesin [Mucinex] 600 mg PO DAILY PRN 07/25/14 12/16/24 History rOPINIRole HCL [Requip] 0.5 mg PO BID 07/25/14 12/16/24 History traZODone HCL [Desyrel] 100 mg PO DAILY 07/25/14 12/16/24 History Fluticasone Propionate [Flonase] 2 spray EA NOSTRIL DAILY PRN 07/26/14 12/16/24 History Melatonin 5 mg PO HS 07/26/14 12/16/24 History Mometasone/Formoterol [Dulera 200 2 puff INHALATION RT-BID PRN 07/26/14 12/16/24 History Mcg/5 Mcg Inhaler] HYDROcodone/APAP 5-325MG [[place] 1 each PO Q4HR PRN #20 tab 07/27/14 02/05/24 Rx 5-325] guaiFENesin-Coden 100-10MG/5ML 10 ml PO Q6H PRN #1 300ml.bag 07/27/14 02/05/24 Rx [Robitussin AC] clonazePAM [Clonazepam] 1 mg PO HS 02/05/24 12/16/24 History Empagliflozin [Jardiance] 25 mg PO DAILY 06/16/24 12/16/24 History Gabapentin 300 mg PO TID 06/16/24 12/16/24 History Pramipexole [Mirapex] 0.125 mg PO DAILY 06/16/24 12/16/24 History metFORMIN HCL 500 mg PO DAILY 06/16/24 12/16/24 History
== END ==
LOC: 3 N SLEEP 13:12
PROVIDERS: ATTEND Internal Medicine
DX: G47.61 Periodic limb movement disorder (principal); J45.909 Unspecified asthma, uncomplicated; E66.9 Obesity, unspecified; R42 Dizziness and giddiness; R51.9 Headache, unspecified; K21.9 Gastro-esophageal reflux disease without esophagitis; Z86.69 Personal history of other diseases of the nervous system and sense organs; Z87.891 Personal history of nicotine dependence; Z88.2 Allergy status to sulfonamides; Z88.0 Allergy status to penicillin
CPT/HCPCS: 99212

== ENCOUNTER → 2025-02-08 | Outpatient (CLI) | payer MEDICARE ==
--- NOTE | 2025-02-08 14:07 | XR ---
EXAMINATION TYPE: XR tibia fibula bilateral DATE OF EXAM: 02/08/2025 2:01 PM INDICATION: Patient age:Male; 79 years old; Reason for study: R29.6 REPEATED FALLS; PHH. pain COMPARISON: None TECHNIQUE: Both tibia/fibula were examined in AP and lateral projections. FINDINGS: No evidence of any acute osseous pathology, joint dislocation, or soft tissue swelling is n oted. No osseous erosions. No periosteal reaction. No radiopaque foreign body. Postsurgical changes f rom prior healed fracture with fixation plating involving the distal right fibula. IMPRESSION: 1. No evidence of acute fracture. 2. Postsurgical changes from fixation involving distal right fibula. [facility], , 02/08/2025 2:05 PM
== END | disposition home or self-care (01) ==
LOC: RADXRMAIN 13:33
PROVIDERS: ATTEND Internal Medicine
DX: R29.6 Repeated falls (principal); Z98.890 Other specified postprocedural states